=== PATIENT | male | born 2000 | race Caucasian/White ===

== ENCOUNTER 2021-02-17 11:25 | Emergency (ER) | payer OTHER ==
[~2021-02-17] VITALS: Ht 182.9 cm; Wt 63.5 kg
[~2021-02-17 11:25] MED LIST: BACTRIM DS TAB1 EACH PO; CLARITIN10 MG PO; PROMETHAZINE-C120 ML PO; PROVENTIL HFA6.7 G1 INH
[2021-02-17 13:24] VITALS: BP 116/80
== END 2021-02-17 13:26 | disposition home or self-care (01) ==
LOC: ER 11:25
DX: S09.90XA Unspecified injury of head, initial encounter (principal); M79.642 Pain in left hand; M25.532 Pain in left wrist; J45.909 Unspecified asthma, uncomplicated; V43.52XA Car driver injured in collision with other type car in traffic accident, initial encounter; Y93.I9 Activity, other involving external motion; Y92.89 Other specified places as the place of occurrence of the external cause; Y99.8 Other external cause status